=== PATIENT | female | born 1990 | race Caucasian/White ===

== ENCOUNTER 2018-06-09 02:39 | Inpatient (IN) | payer MEDICAID ==
[~2018-06-09] VITALS: Ht 167.6 cm; Wt 110.2 kg
[~2018-06-09 02:39] MED LIST: CEP500 PO; HYDR-3078 PO; IBUP800T37 PO; LOR5/325 PO; MEDR104D3 SQ; [UNRECOGNIZED DRUG - CODE] OP
[2018-06-09] MEDS ORDERED: ceFAZolin(*) 2GM/D5W 50ML 50 ML IVPB PRN (02:41)
[2018-06-09] MEDS ORDERED: OXYTOCIN 30 UNIT/D5LR 500 ML 500 ML IV PRN ×2 (02:41→07:17)
[2018-06-09] MEDS ORDERED: FAMOTIDINE(*) 20MG/50ML PREMIX 50 ML IVPB PRN (02:41)
[2018-06-09] MEDS ORDERED: LIDOCAINE/SOD BICARB 8.4% SYR SC PRN (02:45)
[2018-06-09] MEDS ORDERED: LIDOCAINE 1% LOCAL 300 MG/30ML INJ PRN (02:45)
[2018-06-09] MEDS ORDERED: METOCLOPRAMIDE 10 MG/2 ML SDV IVP PRN (02:45)
[2018-06-09] MEDS ORDERED: fentaNYL CITR 100 MCG/2 ML AMP IVP PRN (02:45)
[2018-06-09 03:06] VITALS: BP 114/57; Ht 167.6 cm; Wt 110.2 kg
[2018-06-09 04:00] LABS: PLATELET COUNT, AUTOMATED 247 K/uL (150-450)
[2018-06-09] MEDS ORDERED: ONDANSETRON 4 MG/2 ML VIAL ONE (04:04)
--- NOTE | 2018-06-09 04:14 | History & Physical ---
History of Present Illness EDC per LMP: Jun 21, 2018 Estimated Gestational Age: 38.2 Chief Complaint Labor History of Present Illness 27-year-old at 38w2d presents for UCx. She reports UCx all yesterday but they worsened a few hours ago. No loss of fluid or bleeding. +FM. No preeclampsia symptoms. PNC by Marce DIAZ. PNR not available for this , but last was here and those records have been reviewed. She reports no complications except hx of vacuum delivery due to FHT. Per patient, she is GBS negative. History Patient's Blood Type: A Positive Group B Strep Screen: Negative Obstetrical History: Hx VAVD for NRFHT, 6#1.7oz Past Medical History: Denies significant history Allergies: Coded Allergies: No Known Drug Allergies (Verified , 07/10/09) Social History: Chucky use of alcohol or tobacco. Reports marijuana use Med Rec Home Meds Active Scripts Ibuprofen (IBUPROFEN) 800 Mg Tablet, 800 MG PO Q8H, #30 TAB 0 Refills Prov:ABBYZEINA DO 12/05/16 Hydrocodone Bit/Acetaminophen (HYDROCODON-ACETAMINOPHEN 5-325) 1 Each Tablet, 1- 2 EACH PO Q4H PRN for PAIN, #20 TAB 0 Refills Prov:ABBYZEINA LOW DO 12/05/16 Reported Medications Gentamicin Sulfate (Gentamicin Sulfate) 3.5 Gm Oint..gm., 3.5 GM OP Q4H, 0 Refills 11/17/09 Medroxyprogesterone Acet (Depo-Subq Provera 104) 104 Mg/0.65 Disp.syrin, 104 MG SQ, 0 Refills 07/20/09 Review of Systems Constitutional: No Fever Neurological: No Syncope Eyes: No Vision Change Cardiovascular: No Chest Pain, No Palpitations Respiratory: No Shortness of Breath, No Cough Gastrointestinal: Nausea, Vomiting; No Diarrhea Genitourinary: No Dysuria Musculoskeletal: No Pain Psychiatric: No Depression, No Anxiety Exam General Exam Vital Signs VS reviewed General Apperance: Alert/Awake/No Acute Distress Neuro: No Gross deficits Eyes: Normal Extraocular Movement & Vison Cardiovascular: Regular Rate and Rhythm Respiratory: No Respiratory Distress, Clear to Auscultation Abdomen: Gravid - Non-Tender : Normal Musculoskeletal: No Weakness/Pain Extremities: No Cyanosis,Clubbing or Edema Integumentary: Skin Intact without Lesions or Rash Psychological: Alert & Oriented X3, Appropriate Mood & Affect Cervical Dialation: 4 Cervical Effacement (%): 100 Cervical Consistency: Soft Cervical Position: Mid Station: -2 Presentation: Vertex Uterine Contractions(Q min): 3 Uterine Contraction Strength: Moderate UC Resting Tone: Soft Fetus Feeling Movement?: Yes FHT Category: I Assessment and Plan Problems: (1) Uterine contractions Assessment & Plan: 27-year-old at 38w2d presents for UCx. She appears to be in labor. Will plan for epidural when she is ready. Will start with zofran/fentanyl as she is vomiting. Monitor for cervical change. Will need to review PNR once we get it to confirm labs. (2) 38 weeks gestation of EMILY FUNES MD Jun 09, 2018 04:14
[2018-06-09] MEDS ORDERED: ONDANSETRON 4 MG/2 ML VIAL IVP PRN (04:15)
[2018-06-09] MEDS ORDERED: PREN-127 PO (04:56)
[2018-06-09] MEDS ORDERED: fentaNYL CITR 100 MCG/2 ML AMP IT PRN (05:25)
[2018-06-09] MEDS ORDERED: LIDOCAINE/PF 2% 200MG/10ML AMP 200 MG/10 ML AMPUL EPI PRN (05:25)
[2018-06-09] MEDS ORDERED: BUPIVACAINE 0.5% INJ 30ML VIAL EPI PRN (05:25)
[2018-06-09] MEDS ORDERED: LIDO/EPI 2% MPF 1:200,000 20ML EPI PRN (05:25)
[2018-06-09] MEDS ORDERED: BUPIVACAINE 0.25% MPF INJ EPI PRN (05:25)
[2018-06-09] MEDS ORDERED: FENTANYL/ROPIVACAINE 100 ML BAG EPI PRN (05:25)
[2018-06-09] MEDS ORDERED: ePHEDrine 25 MG/5 ML DISP.SYR IVP ONE (05:28)
[2018-06-09] MEDS: LR(*) 1000 ML BAG 1,000 ML IV SCH ×3 (05:30→12:05)
--- NOTE | 2018-06-09 06:39 | Anesthesia OB Pre-Anes Eval ---
History of Present Illness Anesthesia Start Date: Jun 09, 2018 Anesthesia Start Time: 05:30 OB Anesthesia Diagnosis: spontaneous labor Current Complication: obesity EDC: Jun 21, 2018 : 2 Para: 1 Vital Signs: Vital Signs 06/09/18 03:06 Temp 97.8 Pulse 74 Resp 22 B/P (MAP) 114/57 (76) Pulse Ox 92 O2 Delivery Room Air Pain Ratin Heart Tones: 122 Result Diagram: 06/09/18 0342 Height (Inches): 66.00 Weight (Pounds): 243 BMI (kg/m2): 39.20 Past Medical History Medical History: obesity Surgical History: noncontributory Previous Anesthesia: epidural Attended Childbirth Classes?: No Hx Anesthesia Reactions: No Hx Family Anesthesia Reaction: No Past Complications: obesity Home Meds Reported Medications Vits W-Ca,Fe,Fa(<1MG) ( VITAMINS) 1 Each Tablet, 1 EACH PO DAILY, TAB 06/09/18 Discontinued Reported Medications Gentamicin Sulfate (Gentamicin Sulfate) 3.5 Gm Oint..gm., 3.5 GM OP Q4H, 0 Refills 11/17/09 Medroxyprogesterone Acet (Depo-Subq Provera 104) 104 Mg/0.65 Disp.syrin, 104 MG SQ, 0 Refills 07/20/09 Discontinued Scripts Ibuprofen (IBUPROFEN) 800 Mg Tablet, 800 MG PO Q8H, #30 TAB 0 Refills Prov:ZEINA MORA DO 12/05/16 Hydrocodone Bit/Acetaminophen (HYDROCODON-ACETAMINOPHEN 5-325) 1 Each Tablet, 1- 2 EACH PO Q4H PRN for PAIN, #20 TAB 0 Refills Prov:ZEINA MORA DO 12/05/16 Allergies: Coded Allergies: No Known Drug Allergies (Verified , 07/10/09) Anesthesia OB ROS Neurological: No migraines/headaches, No seizures, No neuropathy, No other ENT: Denies Tooth caps, Denies Loose teeth, Denies Chipped teeth, Denies Berks ures, Denies Bridges, Denies Retainers, Denies Veneers, Denies Implants, Denies Tongue ring, Denies Other Pulmonary: No asthma, No smoker (pks/day/yrs), No other Airway Class: ll Cardiovascular ROS: No edema, No arrhythmia, No other GI ROS: clear liquids Last Solids Date: Jun 08, 2018 Last Solids Time: 20:30 ROS: No Herpes, No STD(s), No Liver Disease, No Renal Disease, No Other Endocrine ROS: No diabetes, No gestational diabetes, No thyroid disorder, No other Musculoskeletal ROS: No low back pain, No low back injury, No scoliosis, No other ASA Classification: 3 Assessment and Plan Anesthesia Plan: CUCA DESOUZA CRNA Jun 09, 2018 06:39
--- NOTE | 2018-06-09 06:44 | Procedure Note ---
Anesthetic Placement Note Anesthesia Plan: LEB Permit for Anesthesia Signed: Yes Anesthesia Technique: Patient Sitting Anesthesia Prep: Chlorhexidine Interspace: L 2-3 Local Anesthetic: 1% Lidocaine Amount Local - cc's: 6 Anesthesia Needle: 17g Touhy/Schliff Anesthesia Attempts: 2 Loss of Resistance: Normal Saline Depth of DONG (cm): 8 Epidural Needle Placement: No CSF, No Blood, No Parasthesia Catheter Insertion (cm): 4 (12cm @skin) Catheter Type: Jim - Spring Wound Epidural Dressing: Tegaderm, Tape Anesthesia Tray: Lot Number ([id number]), Expiration Date (10/24), Reference Number ([id number]) Anesthesia Medications: Epidural Test Dose: 1.5 Lido/Epi (1:200,000), Dose - mL (3), Time (605), Negative Epidural Loading Dose: 0.25% Marcaine, Dose - ml (4), Time (611), Other (Fent 2cc) Epidural Infusion: 0.2% Ropivicaine, With Fentanyl 2mcg/ml, Start Time: (618) Epidural Pump Setting: Bolus Dose - mL (6), Lockout - Minutes (20), Maintenance Rate - mL/hr (12), Maximum per Hour - mL (30) Complications: Comment: Pt very large . unable to feel any edith structure. @ attempts. started at L 2-3 ??? and had bone contact. down 1 level with success. Unable to get itrathecal because needle would not reach. CUCA FIERRO CRNA Jun 09, 2018 06:44
--- NOTE | 2018-06-09 07:52 | Labor Progress Note ---
Labor Subjective Progress Notes Subjective Pt is comfortable now that she has the epidural. She is resting in bed. She denies MICHAEL, vision changes, and RUQ pain. Her is away working so her mother Candy her mother is here to support her. Feeling Movement?: Yes Vaginal Discharge/Fluid: No Bloody Show Labor Pain: Comfortable Neurological: No Headache Eyes: No Visual Disturbances Labor Objective Vital Signs Vital Signs Date Time Temp Pulse Resp B/P (MAP) Pulse Ox O2 Delivery O2 Flow Rate FiO2 06/09/18 03:06 97.8 74 22 114/57 (76) 92 Room Air Vaginal Discharge/Fluid?: Bloody Show Cervical Dialation: 5 Cervical Effacement (%): 80 Cervical Consistency: Moderate Cervical Position: Mid Station: -1 Presentation: Vertex Uterine Contractions(Q min): 6 Uterine Contraction Strength: Moderate UC Resting Tone: Soft Fetus Estimated Weight(grams): 3500 Heart Tones: 140 Heart Tone Variabilty: Absent FHT Accelerations: 15X15 FHT Decelerations: None FHT Category: I General Exam General Appearance: Alert/Awake/No Acute Distress ENT: Normal Neck: No Masses Cardiovascular: Normal Rhythm & Peripheral Pulses Respiratory: No Respiratory Distress Abdomen: Gravid - Non-Tender, RUQ Non-Tender : Normal Musculoskeletal: No Weakness/Pain Integumentary: Skin Intact without Lesions or Rash Psychological: Alert & Oriented X3, Appropriate Mood & Affect Other Result Diagram: 06/09/18 0342 Assessment and Plan Hospital Day: 1 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 at 38w2d wks with an Estimated Date of Delivery: 06/19/18 dated by second trimester US who arrived this morning to L&D in early active labor. [facility] in [place]. Labor state: Active labor, minimal cervical change since last cervical check at 0400 and after epidural placement contraction spaced out. Discussed with patient the R/B/A of augmentation to help labor progression. Pt would like to try Pitocin before AROM. Pitocin will be started and titrated to adequate co ntraction pattern. Encourage side to side with peanut ball and rest to facilitate descent. well-being: Category I FHT: Continuous monitoring Maternal well-being: VSS, normotensive and afebrile, membranes presumed intact PNL: GBS Neg, Type/Rh A+, rubella Pain Management: Comfortable with epidural Feed: Breast c/b: * marijuana use in Anticipate labor progression with adequate cervical change, re-evaluate in 2-3 hours or prn (2) 38 weeks gestation of ANNY ALLEN CNM Jun 09, 2018 07:52
--- NOTE | 2018-06-09 10:20 | Labor Progress Note ---
Labor Subjective Progress Notes Subjective Comfortable status post epidural. Denies any pelvic pressure or pain. Feeling Movement?: Yes Vaginal Discharge/Fluid: Clear Fluid Labor Pain: Mild, Comfortable Neurological: No Headache, No Other Eyes: No Visual Disturbances Labor Objective Vital Signs Vital Signs Date Time Temp Pulse Resp B/P (MAP) Pulse Ox O2 Delivery O2 Flow Rate FiO2 06/09/18 03:06 97.8 74 22 114/57 (76) 92 Room Air Cervical Dialation: 5 Cervical Effacement (%): 100 Cervical Consistency: Soft Cervical Position: Mid Station: -2 Presentation: Vertex Uterine Contractions(Q min): 3 Uterine Contraction Strength: Mild UC Resting Tone: Soft Fetus Heart Tones: 13 Heart Tone Variabilty: Moderate FHT Accelerations: 15X15 FHT Decelerations: None FHT Category: I Other Result Diagram: 06/09/18 0342 Assessment and Plan 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 Increasing oxytocin to help with inadequate contractions. Expect vaginal delivery (2) 38 weeks gestation of ZEINA MORA DO Jun 09, 2018 10:20
--- NOTE | 2018-06-09 12:53 | Labor Progress Note ---
Labor Subjective Progress Notes Subjective Pt complete and pushing. 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 Cynthia Quinteros. 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 Pt presented in labor and progressed to complete and delivered a live born male infant. Delivery was performed by Elva Hopkins CNM. (2) 38 weeks gestation of ABBYZEINA ODELL Jun 09, 2018 12:53
[2018-06-09] MEDS ORDERED: LANOLIN OINT 7 GM TUBE TP PRN (12:55)
[2018-06-09] MEDS ORDERED: MAGNESIUM HYDROXIDE* 30ML UDCP PO PRN (12:55)
[2018-06-09] MEDS ORDERED: HYDROCORTISONE 2.5% CR 30GM TB PR PRN (12:55)
[2018-06-09] MEDS ORDERED: GLYCERIN/WITCH HAZEL LEAF 1 PK TP PRN (12:55)
[2018-06-09] MEDS ORDERED: APAP/HYDROCODONE 325/5 TAB PO PRN (12:55)
[2018-06-09] MEDS ORDERED: ACETAMINOPHEN 325 MG TAB PO PRN (12:55)
[2018-06-09] MEDS ORDERED: BENZOCAINE 20% 60 ML BTL TP PRN (12:55)
--- NOTE | 2018-06-09 12:58 | Anesthesia Progress Note ---
Assessment and Plan Anesthesia Plan: ARRON Anesthesia Stop Day: Jun 09, 2018 Anesthesia Stop Time: 12:45 Epidural Catheter Removal: Removed Catheter Intact, Removed by: (Glenis LEDEZMA) CUCA FIERRO CRNA Jun 09, 2018 12:58
--- NOTE | 2018-06-09 13:35 | OB Delivery Note ---
Delivery Note Delivery Date: Jun 09, 2018 Delivery Time: 12:40 Estimated Gestational Age(wks): 38.2 Delivery Anesthesia: Epidural Sex: Male Apgars: 1 Minute, 5 Minute Estimated Blood Loss: 350 Notes: DB is a 27 year old who was admitted to [facility] this am with OOC on 06/09/18 at 0200. Pt was admitted to the family care unit on 06/09/18 at 0300 with active labor. Cervical exam on admission was 3/70-2. She had AROM on 06/09/18 at 1040 for a small amount of meconium stained fluid. Pt was GBS negative. FHR was CAT I primarily throughout first stage. Pt utilized continuous lumbar epidural primarily for pain management. Pt was completely dilated on 06/09/18 at 1227 and pt began pushing at that time with excellent maternal effort and descent. At 1240 pt had a NSVB of live male infant APGARS 8/9 @ 6lb 5oz The head delivered spontaneously in the OA position and restituted NIDIA with no nuchal cord. The anterior shoulder was delivered a traumatically and the posterior shoulder followed. Body delivered easily. Face was wiped with nose and bulb suction and then placed on the maternal abdomen. The infant was dried and stimulated and noted to have a spontaneous cry and spontaneous movement of all 4 extremities. Peds was in attendance for the for known meconium. Cord was clamped X 2 by CNM after 3 minutes and cut by patient's mother. The baby was then brought to the warmer for full assessment by Peds.Mother was in SF position. At 1243 the placenta and membranes delivered spontaneous and intact with a 3 vessel cord after gentle downward traction and maternal push. 30 units of Pitocin was placed in 500cc IV to firm the uterus and started immediately after placenta delivery. Upon inspection of the perineum it was found to be intact. Hemostasis observed. No repair necessary. EBL 350 with fundus firm with minimal bleeding. Mom and baby were left in stable condition skin to skin. "I personally examined the patient and there are no unintended foreign objects in the vagina and all sponge, lap, and needle counts were correct. Micaela Hopkins CNM was present throughout the entire delivery as well as Dr. Robert Donald. Solutions Sales Executive in Attendence: Yes (Meconium ) MICAELA HOPKINS CNM Jun 09, 2018 13:35
[2018-06-09] MEDS: IBUPROFEN 800 MG TAB PO SCH ×2 (14:17→22:07)
[2018-06-09 15:00] VITALS: BP 117/55
[2018-06-09 19:00] VITALS: BP 114/58
[2018-06-09] MEDS ORDERED: DOCUSATE CALCIUM 240 MG CAP PO SCH (21:00)
[2018-06-09 23:00] VITALS: BP 118/57
[2018-06-10 03:05] VITALS: BP 122/57
[2018-06-10] MEDS: IBUPROFEN 800 MG TAB PO SCH ×2 (06:18→14:00)
--- NOTE | 2018-06-10 08:27 | Anesthesia Post Eval Note ---
Anesthesia Post Eval Note Vital Signs 06/10/18 03:05 Temp 97.9 Pulse 62 Resp 16 B/P (MAP) 122/57 (78) Pulse Ox 93 O2 Delivery Room Air Pt able to participate in Eval: Yes Cardiovascular Status: Satisfactory Respiratory Status: Satisfactory Pain Managment: Satisfactory PO Nausea/Vomiting: Satisfactory Temperature Management: Satisfactory Mental Status: Satisfactory, Alert, Oriented X3 Post-Op Hydration Status: Tolerating PO Well, Voiding w/o Difficulty Anesthesia Type: CUCA NEVAREZ CRNA Jun 10, 2018 08:27
[2018-06-10 09:50] VITALS: BP 117/59
[2018-06-10] MEDS ORDERED: INFLUENZA VIRUS VAC 0.5ML SYR IM ONLY ONE (12:55)
[2018-06-10] MEDS ORDERED: DIPHTH/TETANUS/ACEL. PERTUSSIS IM ONLY ONE (12:55)
[2018-06-10] MEDS ORDERED: MEASLES,MUMP,RUBELLA VAC 0.5ML SUBQ ONE (12:55)
--- NOTE | 2018-06-10 13:04 | OB/GYN Progress Note ---
OB Subjective Progress Notes Subjective Doing good PPD #1. Reports minimal bleeding. No issues with . Tolerating regular diet. Lochia appropriate. Ambulatory with out any issues. Desires to be discharged home. GI: NEG Nausea, NEG Vomiting, NEG Flatus, NEG Bowel Movement : Voiding Well, Vaginal Bleeding, Moderate Pain: Mild, Tolerating PO Pain Meds Neurological: No Headache, No Other Eyes: No Visual Disturbances OB Objective Physical Exam Vital Signs Date Time Temp Pulse Resp B/P (MAP) Pulse Ox O2 Delivery O2 Flow Rate FiO2 06/10/18 03:05 97.9 62 16 122/57 (78) 93 Room Air Intake and Output 06/10/18 06:59 Intake Total 2430 ml Output Total 1600 ml Balance 830 ml Intake Oral 330 ml IV Total 2100 ml Output Urine Total 1600 ml # Voids 2 General Appearance: Alert/Awake/No Acute Distress Neurological: No Gross deficits Eyes: Normal Extraocular Movement & Vison ENT: Normal Neck: No Masses Cardiovascular: Normal Rhythm & Peripheral Pulses, Regular Rate and Rhythm Respiratory: No Respiratory Distress Abdomen: Soft, Non-Tender, Non-Distended, Fundus Firm : Normal Musculoskeletal: No Weakness/Pain Extremities: No Cyanosis,Clubbing or Edema Integumentary: Skin Intact without Lesions or Rash Psychological: Alert & Oriented X3, Appropriate Mood & Affect Result Diagram: 06/10/18 0545 Assessment and Plan 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 Follow up with Marce fur trimmer. ZEINA MORA DO Jun 10, 2018 13:04
[2018-06-10] MEDS ORDERED: IBUP800T37 PO (13:07)
--- NOTE | 2018-06-10 13:11 | OB/GYN Discharge Summary ---
Discharge Summary Reason for Hosp/Final Diag: (1) Uterine contractions Status: Resolved (2) 38 weeks gestation of Status: Resolved (3) care and examination immediately after delivery Hospital Course & Plan: Pt presented for a complaint of painful contractions. Pt changed from 4-5 cm. Received epidural and underwent amniotomy. Progressed quickly to complete and delivered a live born male . Pt remained in the hospital for 1 day post and was discharged home. [place] Vital Signs Vital Signs Date Time Temp Pulse Resp B/P (MAP) Pulse Ox O2 Delivery O2 Flow Rate FiO2 06/10/18 03:05 97.9 62 16 122/57 (78) 93 Room Air Weight (Pounds): 243 Result Diagram: 06/10/18 0545 Condition: Improved Discharge: Home, Self Assisted Meds Reported Medications Vits W-Ca,Fe,Fa(<1MG) ( VITAMINS) 1 Each Tablet, 1 EACH PO DAILY, TAB 06/09/18 Discontinued Reported Medications Gentamicin Sulfate (Gentamicin Sulfate) 3.5 Gm Oint..gm., 3.5 GM OP Q4H, 0 Refills 11/17/09 Medroxyprogesterone Acet (Depo-Subq Provera 104) 104 Mg/0.65 Disp.syrin, 104 MG SQ, 0 Refills 07/20/09 Discontinued Scripts Ibuprofen (IBUPROFEN) 800 Mg Tablet, 800 MG PO Q8H, #30 TAB 0 Refills Prov:ZEINA MORA DO 12/05/16 Hydrocodone Bit/Acetaminophen (HYDROCODON-ACETAMINOPHEN 5-325) 1 Each Tablet, 1- 2 EACH PO Q4H PRN for PAIN, #20 TAB 0 Refills Prov:ZEINA MORA DO 12/05/16 Follow up with: [facility] [phone], Dr. Mora [phone] Follow up in: 6 wks PP or PO, 2 wks PO Discharge Diet: As Tolerates Discharge Activity: As Tolerates, Pelvic Rest ZEINA MORA DO Jun 10, 2018 13:11
== END 2018-06-10 14:20 | disposition home or self-care (01) | DRG 807 ==
LOC: OB 02:39
PROVIDERS: ADMIT Obstetrics & Gynecology; ATTEND Obstetrics & Gynecology
PROC: 10E0XZZ Delivery of Products of Conception, External Approach (ICD-10-PCS; principal; 2018-06-09)
PROC: 10907ZC Drainage of Amniotic Fluid, Therapeutic from Products of Conception, Via Natural or Artificial Opening (ICD-10-PCS; 2018-06-09)
DX: O77.0 Labor and delivery complicated by meconium in amniotic fluid (principal); Z37.0 Single live birth; O99.214 Obesity complicating childbirth; E66.9 Obesity, unspecified; Z3A.38 38 weeks gestation of pregnancy
CPT/HCPCS: 36415; 85025; 85027; 86703; 86850; 86900; 86901; J2590; J3010; J7120